=== PATIENT | female | born 1980 | race Caucasian/White ===

== ENCOUNTER → 2017-09-02 | Outpatient (CLI) | payer MEDICARE, OTHER | END | disposition home or self-care (01) | LOC: KCIC MRI 11:35 | DX: M54.2 Cervicalgia (principal); M25.78 Osteophyte, vertebrae; G93.89 Other specified disorders of brain; Z98.890 Other specified postprocedural states | CPT/HCPCS: 70551; 72141 ==

== ENCOUNTER 2017-09-11 21:31 | Emergency (ER) | payer MEDICARE, OTHER ==
[2017-09-11 22:16] LABS: ADD MAN DIFF? NO
[2017-09-11 22:17] LABS: BASO # 0.1 x10^3/uL (0.0-0.2); BASO % 1 % (0-3); EOS # 0.5 x10^3/uL (0.0-0.7); EOS % 4 % (0-3); HEMATOCRIT 40.9 % (36.0-47.0); HEMOGLOBIN 14.3 g/dL (12.0-15.5); LYMPH # 3.7 x10^3/uL (1.0-4.8); LYMPH % 27 % (24-48); MEAN CORPUSCULAR HEMOGLOBIN 30 pg (25-35); MEAN CORPUSCULAR HGB CONC 35 g/dL (31-37); MEAN CORPUSCULAR VOLUME 87 fL (79-100); MONO # 0.8 x10^3/uL (0.0-1.1); MONO % 6 % (0-9); NEUT # 8.4 x10^3uL (1.8-7.7); NEUT % 62 % (31-73); PLATELET COUNT 372 x10^3/uL (140-400); RED BLOOD COUNT 4.72 x10^6/uL (3.50-5.40); RED CELL DISTRIBUTION WIDTH 13.9 % (11.5-14.5); WHITE BLOOD COUNT 13.5 x10^3/uL (4.0-11.0)
[2017-09-11 22:25] LABS: ANION GAP 11 (6-14); BLOOD UREA NITROGEN 12 mg/dL (7-20); BUN/CREATININE RATIO 17 (6-20); CALCIUM 8.2 mg/dL (8.5-10.1); CARBON DIOXIDE 24 mmol/L (21-32); CHLORIDE 102 mmol/L (98-107); CREATININE 0.7 mg/dL (0.6-1.0); GFR 94.2; GLUCOSE 355 mg/dL (70-99); SODIUM 137 mmol/L (136-145)
[2017-09-11 22:31] LABS: ALBUMIN 2.9 g/dL (3.4-5.0); ALBUMIN/GLOBULIN RATIO 0.7 (1.0-1.7); ALK PHOS 77 U/L (46-116); ALT (SGPT) 17 U/L (14-59); AST (SGOT) 10 U/L (15-37); TOTAL BILIRUBIN 0.2 mg/dL (0.2-1.0)
[2017-09-11 22:58] LABS: URINE HCG POC HCG NEGATIVE (Negative)
[2017-09-11 23:13] LABS: BILIRUBIN,URINE NEGATIVE (NEG); CLARITY,URINE CLEAR; COLOR,URINE YELLOW; GLUCOSE,URINE >=1000 mg/dL (NEG); NITRITE,URINE NEGATIVE (NEG); PH,URINE 5.5; PROTEIN,URINE NEGATIVE (NEG-TRACE); UROBILINOGEN,URINE 0.2 mg/dL (0.2 mg/dL)
[2017-09-11 23:26] LABS: BACTERIA,URINE FEW /HPF (0-FEW); SQUAMOUS EPITHELIAL CELL,UR MOD /LPF; WBC,URINE RARE /HPF (0-4)
[2017-09-11] MEDS: IV NORMAL SALINE 1000ML BAG 1,000 ML IV (23:34)
[2017-09-11] MEDS: fentaNYL PF VIAL 100 MCG/2 ML VIAL IV (23:36)
[2017-09-12] MEDS: fentaNYL PF VIAL 100 MCG/2 ML VIAL IV (02:30)
[2017-09-12] MEDS: CLINDAMYCIN 600MG PREMIX 50 ML IV (04:12)
[2017-09-12 07:01] LABS: NEGATIVE OBC STREP NEG; POSITIVE OBC STREP POS
== END 2017-09-12 05:05 | disposition home or self-care (01) ==
LOC: ER 09-12 05:05
DX: J36 Peritonsillar abscess (principal); E11.9 Type 2 diabetes mellitus without complications; J45.909 Unspecified asthma, uncomplicated; G43.909 Migraine, unspecified, not intractable, without status migrainosus; Z88.0 Allergy status to penicillin; Z88.1 Allergy status to other antibiotic agents; Z88.8 Allergy status to other drugs, medicaments and biological substances; Z88.6 Allergy status to analgesic agent; Z91.041 Radiographic dye allergy status; Z91.040 Latex allergy status
CPT/HCPCS: 36415; 70450; 70490; 80053; 81001; 81025; 85025; 87070; 87880; 96361; 96365; 96375; 99285-25; J3010; J3490; J7030

== ENCOUNTER 2017-12-30 22:23 | Emergency (ER) | payer MEDICARE, OTHER ==
[~2017-12-30] VITALS: Ht 160 cm; Wt 105.2 kg
[~2017-12-30 22:23] MED LIST: BISA-42 PO; CLIN300C8 PO; FLUT9.9S NS; HYDR-2758 PO; HYDR-2766; HYDR15SO4 PO; INSU100I17 SQ; LIDO20SO PO; LINE600T PO; METF500T5; METR500T PO; OMEP20CA9 PO; OXYC10TA45 PO; POLY17PO29 PO; PRED-220 PO; PRED15SO3 PO; PROVENTIL HFA6.7 GM IH
[2017-12-30 22:37] VITALS: BP 149/95
[2017-12-30 22:51] LABS: BILIRUBIN,URINE NEGATIVE (NEG); CLARITY,URINE CLOUDY; COLOR,URINE YELLOW; NITRITE,URINE NEGATIVE (NEG); PH,URINE 5.5; PROTEIN,URINE NEGATIVE (NEG-TRACE); UROBILINOGEN,URINE 0.2 mg/dL (0.2 mg/dL)
[2017-12-30 22:55] LABS: RBC,URINE OCC /HPF (0-2); WBC,URINE 20-40 /HPF (0-4)
[2017-12-30 22:56] LABS: BACTERIA,URINE FEW /HPF (0-FEW); SQUAMOUS EPITHELIAL CELL,UR MOD /LPF
[2017-12-30] MEDS ORDERED: CIPR500T94 PO (23:22)
[2017-12-30] MEDS ORDERED: PHEN100T82 PO (23:22)
--- NOTE | 2017-12-30 23:23 | PHYS DOC ---
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 Patient states she was seen by the PCP at the beginning of her symptoms, she states she was put on Bactrim which she completed 3 days ago. Patient denies any relief of her symptoms. Denies any fever nausea vomiting. Review of Systems Review of Systems Constitutional: Denies fever or chills [] Eyes: Denies change in visual acuity, redness, or eye pain [] HENT: Denies nasal congestion or sore throat [] Respiratory: Denies cough or shortness of breath [] Cardiovascular: No additional information not addressed in HPI [] GI: Denies abdominal pain, nausea, vomiting, bloody stools or diarrhea [] : Reports dysuria and lower abdominal/bladder pressure, denies hematuria [] Musculoskeletal: Denies back pain or joint pain [] Integument: Denies rash or skin lesions [] Neurologic: Denies headache, focal weakness or sensory changes [] All other systems were reviewed and found to be within normal limits, except as documented in this note. Allergies Allergies Allergies Coded Allergies Type Severity Reaction Last Updated Verified iodine Allergy Severe Anaphylaxis 11/01/14 Yes iohexol Allergy Severe Anaphylaxis 11/06/14 Yes Penicillins Allergy Intermediate hives 12/28/13 Yes adhesive Allergy Intermediate 11/01/14 Yes erythromycin base Allergy Intermediate 11/01/14 Yes latex Allergy Mild 08/20/16 Yes NSAIDS (Non-Steroidal Anti-Inflamma Adverse Reaction Intermediate intolerance - "ulcers" 11/01/14 Yes alprazolam Adverse Reaction Intermediate halucinates 01/29/16 Yes Physical Exam Physical Exam Constitutional: Well developed, well nourished, no acute distress, non-toxic appearance. [] HENT: Normocephalic, atraumatic, bilateral external ears normal, oropharynx moist, no oral exudates, nose normal. [] Eyes: PERRLA, EOMI, conjunctiva normal, no discharge. [] Neck: Normal range of motion, no tenderness, supple, no stridor. [] Cardiovascular:Heart rate regular rhythm, no murmur [] Lungs & Thorax: Bilateral breath sounds clear to auscultation [] Abdomen: Rounded abdomen. Bowel sounds normal, soft, no tenderness, no masses, no pulsatile masses. [] Skin: Warm, dry, no erythema, no rash. [] Back: No tenderness, no CVA tenderness. [] Extremities: No tenderness, no cyanosis, no clubbing, ROM intact, no edema. [] Neurologic: Alert and oriented X 3, normal motor function, normal sensory function, no focal deficits noted. [] Psychologic: Affect normal, judgement normal, mood normal. [] Current Patient Data Lab Values Laboratory Tests Test 12/30/17 22:45 Urine Collection Type Unknown Urine Color Yellow Urine Clarity Cloudy Urine pH 5.5 Urine Specific [place] 1.020 Urine Protein Negative mg/dL (NEG-TRACE) Urine Glucose (UA) >=1000 mg/dL (NEG) Urine Ketones (Stick) Negative mg/dL (NEG) Urine Blood Moderate (NEG) Urine Nitrite Negative (NEG) Urine Bilirubin Negative (NEG) Urine Urobilinogen Dipstick 0.2 mg/dL (0.2 mg/dL) Urine Leukocyte Esterase Large (NEG) Urine RBC Occ /HPF (0-2) Urine WBC 20-40 /HPF (0-4) Urine Squamous Epithelial Cells Mod /LPF Urine Bacteria Few /HPF (0-FEW) Urine Mucus Slight /LPF EKG EKG [] Radiology/Procedures Radiology/Procedures [] Course & Med Decision Making Course & Med Decision Making Pertinent Labs and Imaging studies reviewed. (See chart for details) This is a 37-year-old female patient presenting to the ED today with dysuria for 10 days. Was on Bactrim which she completed 3 days ago. Urine still shows infection though it appears contaminated she is symptomatic. I'll put this patient on a different antibiotics specifically Cipro. Her urine will be cultured. She was also discharged with Pyridium. She is on hydrocodone for her brain tumor. Dragon Disclaimer Dragon Disclaimer This electronic medical record was generated, in whole or in part, using a voice recognition dictation system. Departure Departure Impression: Primary Impression: UTI (lower urinary tract infection) Disposition: HOME, SELF-CARE Condition: STABLE Referrals: NADIA GEORGE MD (PCP) follow up in 1-2 weeks Patient Instructions: Urinary Tract Infection Additional Instructions: You were evaluated in the emergency room for urinary tract infection. We put you on a different antibiotics. Take it as prescribed. We sent you home on Pyridium take it for pain as well. Follow-up with your own doctor in the next 2 weeks. Come back to the emergency room at any point symptoms worsen. Scripts Phenazopyridine Hcl (PYRIDIUM) 100 Mg Tablet 100 MG PO TID, #9 TAB Prov: BABAK GASCA APRN 12/30/17 Ciprofloxacin Hcl (CIPRO) 500 Mg Tablet 1 TAB PO BID, #14 TAB Prov: BABAK GASCA APRN 12/30/17 BABAK GASCA APRN Dec 30, 2017 23:23
== END 2017-12-30 23:34 | disposition home or self-care (01) ==
LOC: ER 22:23
DX: N39.0 Urinary tract infection, site not specified (principal); E11.9 Type 2 diabetes mellitus without complications; J45.909 Unspecified asthma, uncomplicated; G43.909 Migraine, unspecified, not intractable, without status migrainosus; Z98.51 Tubal ligation status; Z90.49 Acquired absence of other specified parts of digestive tract; Z88.0 Allergy status to penicillin; Z88.8 Allergy status to other drugs, medicaments and biological substances; Z88.6 Allergy status to analgesic agent; Z88.1 Allergy status to other antibiotic agents; Z91.041 Radiographic dye allergy status; Z91.040 Latex allergy status
CPT/HCPCS: 81001; 87086; 99284

== ENCOUNTER 2020-05-30 21:23 | Emergency (ER) | payer MEDICARE, OTHER ==
[~2020-05-30] VITALS: Ht 160 cm; Wt 98.0 kg
[~2020-05-30 21:23] MED LIST changes: +CIPR500T94 PO; -CLIN300C8 PO; +CLIN300C9 PO; +DOXY100C2 PO; -HYDR-2758 PO; +HYDR-2761 PO; -HYDR-2766; +HYDR-2769; -HYDR15SO4 PO; +HYDR15SO6 PO; +INSU100V35 SQ; +INSU100V8 SQ; -LINE600T PO; +LINE600T12 PO; +METF500T PO; +METF500T16; -METF500T5; +OMEP20CA16 PO; -OMEP20CA9 PO; -OXYC10TA45 PO; +OXYC10TA46 PO; +OXYC5CAP PO; +PHEN100T82 PO
[2020-05-30 21:33] VITALS: BP 140/88
[2020-05-30] MEDS ORDERED: CHLO15MO2 SWSP (21:52)
[2020-05-30] MEDS ORDERED: CLIN150C15 PO (21:52)
--- NOTE | 2020-05-30 21:53 | ED.ADGEN ---
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 She states that she has had some nausea in addition to the dental pain but denies any fever, cough, sore throat, vomiting, diarrhea, abdominal pain, body aches, fatigue, sore throat, or rash. Patient states she is also had some ear pain but denies any drainage or bleeding from ears. She currently rates pain a 10 out of 10 on pain scale, she denies any alleviating factors. Review of Systems: Review of Systems: Complete ROS is negative unless otherwise noted in HPI. Allergies: Allergies: Allergies Coded Allergies Type Severity Reaction Last Updated Verified iodine Allergy Severe Anaphylaxis 03/16/20 Yes iohexol Allergy Severe Anaphylaxis 03/16/20 Yes zinc Allergy Severe 03/16/20 Yes Penicillins Allergy Intermediate hives 03/16/20 Yes adhesive Allergy Intermediate 03/16/20 Yes erythromycin base Allergy Intermediate 03/16/20 Yes latex Allergy Intermediate 03/16/20 Yes NSAIDS (Non-Steroidal Anti-Inflamma Adverse Reaction Intermediate intolerance- "ulcers" 11/01/14 Yes alprazolam Adverse Reaction Intermediate halucinates 01/29/16 Yes Physical Exam: PE: See Above Constitutional: Well developed, well nourished, no acute distress, non-toxic appearance, obese. [] HENT: Normocephalic, atraumatic, bilateral external ears normal, bilateral TMs normal, nose normal; diffuse dental decay with numerous missing teeth, tooth 23 is broken with rotten decay left in the gingiva, pus coming from the gingiva in this area, large amount of gingival edema and erythema, facial swelling to the lower left jaw Eyes: PERRLA, EOMI, conjunctiva normal, no discharge. [] Neck: Normal range of motion, supple, no stridor. [] Cardiovascular:Heart rate regular rhythm Lungs & Thorax: Respirations even and unlabored, no retractions, no respiratory distress Skin: Warm, dry, no erythema, no rash. [] Extremities: No cyanosis, ROM intact, no edema. [] Neurologic: Alert and oriented X 3, no focal deficits noted. [] Psychologic: Affect normal, judgement normal, mood normal. [] Current Patient Data: Vital Signs: Vital Signs Date Time Temp Pulse Resp B/P (MAP) Pulse Ox O2 Delivery O2 Flow Rate FiO2 05/30/20 21:33 98.0 98 20 140/88 (105) 96 Room Air 98.0 EKG: EKG: [] Heart Score: Risk Factors: Risk Factors: DM, Current or recent (<one month) smoker, HTN, HLP, family history of CAD, obesity. Risk Scores: Score 0 - 3: 2.5% MACE over next 6 weeks - Discharge Home Score 4 - 6: 20.3% MACE over next 6 weeks - Admit for Clinical Observation Score 7 - 10: 72.7% MACE over next 6 weeks - Early Invasive Strategies Radiology/Procedures: Radiology/Procedures: [] Course & Med Decision Making: Course & Med Decision Making Pertinent Labs and Imaging studies reviewed. (See chart for details) [] Dragon Disclaimer: Dragon Disclaimer: This electronic medical record was generated, in whole or in part, using a voice recognition dictation system. Departure Departure Impression: Primary Impression: Infected dental caries Additional Impressions: Dentalgia Abscess, dental Gingivitis Disposition: 01 DC HOME SELF CARE/HOMELESS Condition: STABLE Referrals: NADIA GEORGE MD (PCP) Patient Instructions: Dental Abscess, Gingivitis, [id number] Additional Instructions: Fill prescription(s) and use as directed. Follow up with dentist using the referral list provided. Return to the ER if symptoms worsen or fever develops. Scripts Chlorhexidine Gluconate (PERIDEX) 15 Ml Mouthwash 15 ML SWSP BID for 10 Days, #1 BOT 0 Refills [place] your teeth before use of this medication and rinse thoroughly after using the medication as it may stain your teeth. Prov: MARVIN ALVAREZ HEAD WRESTLING COACH 05/30/20 Clindamycin Hcl (CLINDAMYCIN HCL) 150 Mg Capsule 300 MG PO QID for 7 Days, #56 CAP 0 Refills Prov: MARVIN ALVAREZ [employer] WRESTLING COACH 05/30/20 Problem Qualifiers MARVIN ALVAREZ HEAD WRESTLING COACH May 30, 2020 21:53
[2020-05-30] MEDS ORDERED: HYDROcodone/APAP 5/325MG 1 TAB TABLET PO ONE (22:00)
== END 2020-05-30 22:00 | disposition home or self-care (01) ==
LOC: ER 21:23
DX: K02.9 Dental caries, unspecified (principal); K04.7 Periapical abscess without sinus; K05.10 Chronic gingivitis, plaque induced; R11.0 Nausea; R60.0 Localized edema; J45.909 Unspecified asthma, uncomplicated; E11.9 Type 2 diabetes mellitus without complications; G43.909 Migraine, unspecified, not intractable, without status migrainosus; F17.200 Nicotine dependence, unspecified, uncomplicated; Z90.49 Acquired absence of other specified parts of digestive tract; Z98.51 Tubal ligation status; Z98.890 Other specified postprocedural states; Z91.041 Radiographic dye allergy status; Z88.0 Allergy status to penicillin; Z88.1 Allergy status to other antibiotic agents; Z91.040 Latex allergy status; Z88.8 Allergy status to other drugs, medicaments and biological substances
CPT/HCPCS: 99283

== ENCOUNTER 2021-05-06 19:21 | Emergency (ER) | payer MEDICARE, OTHER ==
[~2021-05-06] VITALS: Ht 160 cm; Wt 95.4 kg
[~2021-05-06 19:21] MED LIST changes: +CHLO15MO2 SWSP; +CLIN-94 PO; +CLIN150C16 PO; -CLIN300C9 PO; -DOXY100C2 PO; +DOXY100C3 PO
[2021-05-06 22:03] VITALS: BP 119/61
--- NOTE | 2021-05-06 22:07 | RAD ---
EXAM: PA, oblique and lateral views left hand DATE: 05/06/2021 9:39 PM INDICATION: Reason: left hand pain fell yesterday thinks she is too / Spl. Instructions: / History: . COMPARISON: No Prior FINDINGS/ IMPRESSION: No evidence of acute fracture or dislocation. Joint spaces are preserved without significant degenera tive/proliferative change. Ulnar minus variance. Electronically signed by: Darrell Keen MD (05/06/2021 10:04 PM) SIMONE
--- NOTE | 2021-05-06 22:16 | PHYS DOC ---
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 Patient denies any loss of consciousness. Denies any neck pain, denies hitting her head on the ground. States the pain is throbbing and intermittent, states the pain is better when she wrapped the left hand. States she could be and would like a test. Last menstrual cycle was towards the end of February. Review of Systems: Review of Systems: Constitutional: Denies fever or chills. [] Musculoskeletal: Reports left hand pain Integument: Denies rash. [] Neurologic: Denies headache, focal weakness or sensory changes. [] Psychiatric: Denies depression or anxiety. [] Heart Score: C/O Chest Pain: N/A Risk Factors: Risk Factors: DM, Current or recent (<one month) smoker, HTN, HLP, family history of CAD, obesity. Risk Scores: Score 0 - 3: 2.5% MACE over next 6 weeks - Discharge Home Score 4 - 6: 20.3% MACE over next 6 weeks - Admit for Clinical Observation Score 7 - 10: 72.7% MACE over next 6 weeks - Early Invasive Strategies Allergies: Allergies: Allergies Coded Allergies Type Severity Reaction Last Updated Verified iodine Allergy Severe Anaphylaxis 03/16/20 Yes iohexol Allergy Severe Anaphylaxis 03/16/20 Yes zinc Allergy Severe 03/16/20 Yes Penicillins Allergy Intermediate hives 03/16/20 Yes adhesive Allergy Intermediate 03/16/20 Yes erythromycin base Allergy Intermediate 03/16/20 Yes latex Allergy Intermediate 03/16/20 Yes NSAIDS (Non-Steroidal Anti-Inflamma Adverse Reaction Intermediate intolerance- "ulcers" 11/01/14 Yes alprazolam Adverse Reaction Intermediate halucinates 01/29/16 Yes Physical Exam: PE: Constitutional: Well developed, well nourished, no acute distress, non-toxic appearance. [] Skin: Warm, dry, no erythema, no rash. [] Back: No tenderness, no CVA tenderness. [] Extremities: Left hand with no obvious deformity. Soft tissue swelling noted on the palmar aspect of the left thumb, full range of motion to the left hand and fingers. Tenderness on the webspace between the thumb and the index finger. Adequate radial, medial, ulnar sensation to the left hand. +2 left radial pulse. Cap refill less than 2 seconds to left fingers Neurologic: Alert and oriented X 3, normal motor function, normal sensory function, no focal deficits noted. [] Psychologic: Affect normal, judgement normal, mood normal. [] Current Patient Data: Labs: Laboratory Tests Test 05/06/21 21:38 POC Urine HCG, Qualitative Hcg negative (Negative) Vital Signs: Vital Signs Date Time Temp Pulse Resp B/P (MAP) Pulse Ox O2 Delivery O2 Flow Rate FiO2 05/06/21 21:35 98.6 82 20 140/82 (101) 98 Room Air 98.6 EKG: EKG: [] Radiology/Procedures: Radiology/Procedures: []PROCEDURE: HAND LEFT 3V EXAM: PA, oblique and lateral views left hand DATE: 05/06/2021 9:39 PM INDICATION: Reason: left hand pain fell yesterday thinks she is too / Spl. Instructions: / History: . COMPARISON: No Prior FINDINGS/ IMPRESSION: No evidence of acute fracture or dislocation. Joint spaces are preserved without significant degenerative/proliferative change. Ulnar minus variance. Electronically signed by: Darrell Keen MD (05/06/2021 10:04 PM) [facility] SIGNED BY: DARRELL KEEN MD DATE: 05/06/21 [id number] 0 Course & Med Decision Making: Course & Med Decision Making Pertinent Labs and Imaging studies reviewed. (See chart for details) This is a 40-year-old female patient presenting to the ED today with left hand pain after falling yesterday. Left hand x-rays are negative for any acute findings. Sonu bandage applied to the left hand by me, neurovascular exam done by me to the left hand is normal, encouraged to ice and elevate the extremity. Follow-up with orthopedic doctor in 1 week if pain persist Deny Disclaimer: Dragon Disclaimer: This electronic medical record was generated, in whole or in part, using a voice recognition dictation system. Departure Departure Impression: Primary Impression: Contusion of left hand Qualified Codes: S60.222A - Contusion of left hand, initial encounter Disposition: HOME / SELF CARE / HOMELESS Condition: STABLE Referrals: NADIA GEORGE MD (PCP) MECHELLE BRAY Jr. DO follow up in one week Patient Instructions: Hand Contusion Additional Instructions: You were seen for left hand pain, your left hand x-rays are negative for any acute findings, try to ice and elevate the extremity. Follow-up with the provided orthopedic doctor in 1 week if pain persist. Scripts Cyclobenzaprine Hcl (CYCLOBENZAPRINE HCL) 10 Mg Tablet 1 TAB PO TID, #30 TAB Prov: BABAK GASCA APRN 05/06/21 BABAK GASCA APRN May 06, 2021 22:16
[2021-05-06] MEDS ORDERED: CYCL10TA19 PO (22:21)
== END 2021-05-06 22:50 | disposition home or self-care (01) ==
LOC: ER 19:21
DX: S60.222A Contusion of left hand, initial encounter (principal); J45.909 Unspecified asthma, uncomplicated; E11.9 Type 2 diabetes mellitus without complications; G43.909 Migraine, unspecified, not intractable, without status migrainosus; F17.200 Nicotine dependence, unspecified, uncomplicated; Z88.0 Allergy status to penicillin; Z88.1 Allergy status to other antibiotic agents; Z91.040 Latex allergy status; Z88.6 Allergy status to analgesic agent; Z88.8 Allergy status to other drugs, medicaments and biological substances; W10.8XXA Fall (on) (from) other stairs and steps, initial encounter; Y93.89 Activity, other specified; Y92.89 Other specified places as the place of occurrence of the external cause; Y99.8 Other external cause status
CPT/HCPCS: 73130; 81025; 99283

== ENCOUNTER 2021-05-16 01:39 | Emergency (ER) | payer MEDICARE, OTHER ==
[~2021-05-16] VITALS: Ht 160 cm; Wt 95.4 kg
[~2021-05-16 01:39] MED LIST changes: +CYCL10TA19 PO
--- NOTE | 2021-05-16 02:25 | PHYS DOC ---
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 She reports mild painful swelling. She reports having a mild headache. She denies fevers or chills. She denies cough, dyspnea, chest pain. She denies nausea or vomiting. She denies any voice changes. She requests a "liquid" medication to coat her throat. Ultimately, it sounds like she is trying to describe Cetacaine spray. She is reportedly had this in the past and found it useful. Review of Systems: Review of Systems: Constitutional: Denies fever or chills. [] Eyes: Denies change in visual acuity. [] HENT: Sore throat reported. Odynophagia reported. Mild nasal congestion. Respiratory: Denies cough or shortness of breath. [] Cardiovascular: Denies chest pain GI: Denies abdominal pain, nausea, vomiting Musculoskeletal: Denies back pain or joint pain. [] Integument: Denies rash. [] Neurologic: Reports mild headache. Heart Score: C/O Chest Pain: No Risk Factors: Risk Factors: DM, Current or recent (<one month) smoker, HTN, HLP, family history of CAD, obesity. Risk Scores: Score 0 - 3: 2.5% MACE over next 6 weeks - Discharge Home Score 4 - 6: 20.3% MACE over next 6 weeks - Admit for Clinical Observation Score 7 - 10: 72.7% MACE over next 6 weeks - Early Invasive Strategies Allergies: Allergies: Allergies Coded Allergies Type Severity Reaction Last Updated Verified iodine Allergy Severe Anaphylaxis 03/16/20 Yes iohexol Allergy Severe Anaphylaxis 03/16/20 Yes zinc Allergy Severe 03/16/20 Yes Penicillins Allergy Intermediate hives 03/16/20 Yes adhesive Allergy Intermediate 03/16/20 Yes erythromycin base Allergy Intermediate 03/16/20 Yes latex Allergy Intermediate 03/16/20 Yes NSAIDS (Non-Steroidal Anti-Inflamma Adverse Reaction Intermediate intolerance- "ulcers" 11/01/14 Yes alprazolam Adverse Reaction Intermediate halucinates 01/29/16 Yes Physical Exam: PE: Constitutional: Well developed, well nourished, no acute distress, non-toxic appearance. [] HENT: Normocephalic, atraumatic, oropharynx is patent, mild oropharyngeal and tonsillar erythema, mild left-sided tonsillar exudate is noted. Uvula midline, no uvular edema. No asymmetry. No facial or oral edema. No drooling or trismus. TMs are clear bilaterally. Mucous membranes are moist. Eyes: Conjunctive are normal, sclera are clear Neck: Normal range of motion, no tenderness, supple, no stridor. Trachea is midline. No meningismus. Cardiovascular:Heart rate regular rhythm, well-perfused appearing Lungs & Thorax: Bilateral breath sounds clear to auscultation, no rales, rhonchi or wheezes, no stridor, no evidence of respiratory distress. Skin: Warm, dry, no erythema, no rash. Extremities: No limb deformity or edema Neurologic: Alert and oriented X 3, normal motor function, normal sensory function, no focal deficits noted. [] Psychologic: Affect is bizarre [] EKG: EKG: [] Radiology/Procedures: Radiology/Procedures: [] Course & Med Decision Making: Course & Med Decision Making Pertinent Labs and Imaging studies reviewed. (See chart for details) The patient is given p.o. [place] here for pain. She changed her mind multiple times about which pharmacy she wanted her prescription sent to, so I had to go back to the computer and cancel her previously prescribed occasions and send them ultimately to a [facility] that was open 24 hours. The patient demands a prescription for Cetacaine spray. There is no indication for imaging, further invasive exams or labs at this time, based on current clinical presentation. She manifests no evidence of airway compromise or distress. Home care instructions are given. Return precautions are given. I told her to follow-up with her primary care physician for further evaluation and treatment. Dragon Disclaimer: Dragon Disclaimer: This electronic medical record was generated, in whole or in part, using a voice recognition dictation system. Departure Departure Impression: Primary Impression: Tonsillitis Disposition: HOME / SELF CARE / HOMELESS Condition: STABLE Referrals: NADIA GEORGE MD (PCP) Patient Instructions: Tonsillitis Additional Instructions: Take the full course of antibiotics. You may use salt water gargles to help soothe your throat. Eat a soft, bland diet. Use the pain medicine as needed for severe pain. Return for facial swelling, difficulty breathing, if you are unable to swallow or control your secretions or for any other concerns. Follow- up with your primary care physician. Please avoid smoking. Do not eat or drink after others. Scripts Tetracaine/Benzocaine/Butamben (Cetacaine [place]) 20 Gm [place] 1 SPRAY TP TID for throat pain, #1 BOTTLE Prov: ELIECER MARTINEZ DO 05/16/21 Cephalexin (KEFLEX) 500 Mg Capsule 1 CAP PO BID for 7 Days, #14 CAP Prov: ELIECER MARTINEZ DO 05/16/21 Hydrocodone Bit/Acetaminophen (HYDROCODONE-APAP 5-325 ) 1 Tab Tablet 1 TAB PO PRN Q6HRS PRN for PAIN, #10 TAB 0 Refills Prov: ELIECER MARTINEZ DO 05/16/21 ELIECER MARTINEZ DO May 16, 2021 02:25
[2021-05-16] MEDS ORDERED: HYDROcodone/APAP 5/325MG 1 TAB TABLET PO ONE (02:45)
[2021-05-16] MEDS ORDERED: HYDR-2761 PO ×3 (05:06→05:33)
[2021-05-16] MEDS ORDERED: CEPH500C PO ×3 (05:06→05:33)
[2021-05-16] MEDS ORDERED: TETR20SP TP ×3 (05:06→05:33)
[2021-05-16 05:30] VITALS: BP 103/64
--- NOTE | 2021-05-17 13:48 | NUR ---
IP: Informed pt of negative covid test. Pt verbalized understanding.
== END 2021-05-16 05:40 | disposition home or self-care (01) ==
LOC: ER 01:39
DX: J03.90 Acute tonsillitis, unspecified (principal); J45.909 Unspecified asthma, uncomplicated; E11.9 Type 2 diabetes mellitus without complications; G43.909 Migraine, unspecified, not intractable, without status migrainosus; F17.200 Nicotine dependence, unspecified, uncomplicated
CPT/HCPCS: 87070; 87426; 87880; 99285; U0003; U0005

== ENCOUNTER 2021-05-17 22:11 | Emergency (ER) | payer MEDICARE, OTHER ==
[~2021-05-17] VITALS: Ht 160 cm; Wt 95.5 kg
[~2021-05-17 22:11] MED LIST changes: +CEPH500C PO; +TETR20SP TP
[2021-05-18 00:24] VITALS: BP 150/63
--- NOTE | 2021-05-18 00:36 | PHYS DOC ---
Past Medical History Past Medical History: Asthma, Diabetes-Type II, Migraines, Seizure, Other Additional Past Medical Histor: BRAIN TUMORS WITH CYSTS Past Surgical History: Other Additional Past Surgical Histo: BRAIN Smoking Status: Current Every Day Smoker Alcohol Use: Occasionally Drug Use: None General Adult EDM: Chief Complaint: SORE THROAT HPI: HPI: Patient is a 40 year old female here with report of sore throat. I saw this patient just a few days ago for the same symptoms. I had prescribed her hydrocodone and Keflex. She had demanded to be prescribed Cetacaine spray as well, so I prescribed this to her. She reports that her throat still hurts. She has not started taking the Keflex. She told the nurse that she was told not to fill it by the pharmacist, but then she tells me that she felt it but has not yet taken it. She then tells me that the pharmacy told her to "be careful" when she takes it since she has a known penicillin allergy. I had discussed her allergies with her at the time when I saw her in the ER a few days ago, and she reports that she has had cephalosporin medications including Keflex multiple times without any issue. She has still not taken it. She reports that she has not taken the hydrocodone, and she wants something different for pain. She repo rts that she "cannot swallow." She reports that she feels like she is dying. She was found to be sleeping very soundly in the waiting room before the nurse went to retrieve her to bring her back to the room here. The patient immediately began screaming and cursing at me very loudly. She reports that she does not like me, she did not like when I saw her the other day, she reports that I was rude to her. She reports that I am screaming at her. She reports that she is upset because I asked her about her Covid status when she was in the ER recently. Of note, the patient strep, influenza and Covid swabs all returned as negative. The patient is wildly uncooperative, verbally abusive, incredibly hostile. The patient spits into her hand and tries to fling it toward me and reports that she is unable to swallow her spit. She is noted to be speaking in brisk, loud sentences, and is able to swallow her secretions without any difficulty. Review of Systems: Review of Systems: Constitutional: The patient reports that she has had high fevers at home, and she thinks that 99 degrees is a fever. She reports that normal for her is 96 degrees. She has no objectively measured fever. HENT: Sore throat and nasal congestion. Respiratory: Denies dyspnea. She does report a mild cough. Cardiovascular: Denies chest pain GI: She denies nausea or vomiting. Integument: Denies rash. [] Neurologic: Denies headache Psychiatric: Anxiety, mood disturbance, hostility [] Heart Score: C/O Chest Pain: No Risk Factors: Risk Factors: DM, Current or recent (<one month) smoker, HTN, HLP, family history of CAD, obesity. Risk Scores: Score 0 - 3: 2.5% MACE over next 6 weeks - Discharge Home Score 4 - 6: 20.3% MACE over next 6 weeks - Admit for Clinical Observation Score 7 - 10: 72.7% MACE over next 6 weeks - Early Invasive Strategies Allergies: Allergies: Allergies Coded Allergies Type Severity Reaction Last Updated Verified iodine Allergy Severe Anaphylaxis 05/16/21 Yes iohexol Allergy Severe Anaphylaxis 05/16/21 Yes zinc Allergy Severe 05/16/21 Yes Penicillins Allergy Intermediate hives 05/16/21 Yes adhesive Allergy Intermediate 05/16/21 Yes erythromycin base Allergy Intermediate 05/16/21 Yes latex Allergy Intermediate 05/16/21 Yes NSAIDS (Non-Steroidal Anti-Inflamma Adverse Reaction Intermediate intolerance- "ulcers" 05/16/21 Yes alprazolam Adverse Reaction Intermediate halucinates 05/16/21 Yes Physical Exam: PE: Constitutional: Well developed, well nourished, no acute distress, non-toxic appearance. [] HENT: Normocephalic, atraumatic, oropharynx is patent, clear, uvula midline, minimal tonsillar erythema. No edema. No asymmetry. No drooling or trismus. No oropharyngeal rash, ulcers. Mucous membranes are moist. She is controlling her secretions very well, she is speaking clearly without any difficulty. Voice is clear and nonmuffled. Her dentition is quite poor. Eyes: Sclera are clear and anicteric. No matting or drainage of her eyes. No obvious conjunctival injection. Neck: Trachea is midline, no stridor, no tenderness Cardiovascular:Heart rate regular rhythm, warm and well-perfused, +2 radial pulses Lungs & Thorax: Bilateral breath sounds clear to auscultation, no rales, rhonchi or wheezes, no stridor, speaks in full, loud and clear sentences. Skin: Warm, dry, no erythema, no rash. [] Back: No tenderness, no deformity Extremities: No peripheral edema, no limb deformity Neurologic: She is awake and alert, conversant, ambulatory with a steady gait, no facial asymmetry, normal-appearing motor strength Psychologic: Hostile, yelling and screaming, yelling obscenities, behaving belligerently and is verbally abusive [] EKG: EKG: [] Radiology/Procedures: Radiology/Procedures: [] Course & Med Decision Making: Course & Med Decision Making I reviewed the patient's labs from her last visit, and her Covid PCR returned is negative. She does not have a fever, despite claiming that 99 degrees is a fever for her. She repeatedly demands for me to give her a "shot." She cannot tell me what shot she believes that she needs. I did offer to give her a dose of Tylenol here, and she refuses this. The patient repeatedly states to me that she knows that she is dying and cannot breathe and cannot swallow her secretions. Security was asked to come to the bedside given the patient's hostile and volatile behavior. I asked her multiple times to please stop screaming and cursing. She continues to accuse me of yelling at her. I told her that she was the only person in the room who is yelling. I explained that there is no indication for further exams at this time. Her exam is quite benign. I told her that she likely has a viral pharyngitis. She may take the Keflex if she so chooses, but if she is not taking the medication as prescribed, it cannot be of any therapeutic benefit to her. I will not prescribe any further medications for her at this time. There is no indication to pursue any further testing here at this time. Her medical screening exam does not reveal any evidence of acute life-threatening entity, she will be dismissed from the ER. The nurse reports that the patient rolled onto the floor, attempted to refuse to leave the hospital. She was told that if she did not leave, she would be trespassing on to be escorted off property by police. The patient's father was called to come pick her up, and then she left thereafter. I did attempt to give her return pr ecautions. Paperwork was given. The patient refused to sign the discharge paperwork. Deny Disclaimer: Dney Disclaimer: This electronic medical record was generated, in whole or in part, using a voice recognition dictation system. Departure Departure Impression: Primary Impression: Sore throat (viral) Additional Impression: Hostile behavior Disposition: HOME / SELF CARE / HOMELESS Condition: STABLE Referrals: NADIA GEORGE MD (PCP) Patient Instructions: Sore Throat Additional Instructions: Please go ahead and take your previously prescribed medications. You may use salt water gargles to help with pain. You should eat a bland, soft diet. Drink plenty of clear fluids. Your exam today is unremarkable, you have a very mild redness in your throat, there is no evidence of any airway compromise or distress. Her vital signs are stable. If you should develop a fever of 100.4 or higher, you may take [id number] Tylenol as needed. Return for emergency medical condition, please contact your primary care doctor on Wednesday to discuss the situation further. ELIECER MARTINEZ DO May 18, 2021 00:36
== END 2021-05-18 00:58 | disposition home or self-care (01) ==
LOC: ER 22:11
DX: B97.89 Other viral agents as the cause of diseases classified elsewhere (principal); J02.8 Acute pharyngitis due to other specified organisms; J45.909 Unspecified asthma, uncomplicated; E11.9 Type 2 diabetes mellitus without complications; G43.909 Migraine, unspecified, not intractable, without status migrainosus; F17.200 Nicotine dependence, unspecified, uncomplicated; Z88.0 Allergy status to penicillin; Z88.1 Allergy status to other antibiotic agents; Z91.040 Latex allergy status; Z88.8 Allergy status to other drugs, medicaments and biological substances; Z88.6 Allergy status to analgesic agent
CPT/HCPCS: 99281